=== PATIENT | male | born 1990 | race Hispanic/Latino ===

== ENCOUNTER 2017-09-08 23:38 | Emergency (ER) | payer BC ==
--- NOTE | 2017-09-09 00:37 | ED PDOC ---
HPI: Abdomen Time Seen by Provider: 09/09/17 00:06 Chief Complaint (Nursing): Abdominal Pain Chief Complaint (Provider): Abdominal Pain History Per: Patient History/Exam Limitations: no limitations Onset/Duration Of Symptoms: Days (1 week) Location Of Pain/Discomfort: RUQ Quality Of Discomfort: "Pain" Associated Symptoms: Nausea. denies: Vomiting, Other (abnormal bowel movement) Additional Complaint(s): 26 year old male with a history of ADHD presents to the ED complaining of abdominal pain. Reports he started taking strattera medication for ADHD 4 weeks ago and about one week ago, he developed right-sided abdominal pain. States the pain was initially on the right lower quadrant but radiated to right upper quadrant with associated symptoms of nausea and intermittent groin pain. However , he currently does not have groin pain. Patient is also concerned about liver involvement because of the medication he has been taking. Denies vomiting or abnormal bowel movement. PMD: No Family Provider Past Medical History Reviewed: Historical Data, Nursing Documentation, Vital Signs Vital Signs: Last Vital Signs Temp 98.5 F 09/08/17 23:46 Pulse 94 H 09/08/17 23:46 Resp 16 09/08/17 23:46 BP 136/80 09/08/17 23:46 Pulse Ox 98 09/09/17 00:43 - Medical History PMH: Asthma Denies: Chronic Kidney Disease - Surgical History Surgical History: Tonsillectomy - Family History Family History: States: Unknown Family Hx - Immunization History Hx Tetanus Toxoid Vaccination: Yes - Home Medications Home Medications: Ambulatory Orders Medication Instructions Recorded Ibuprofen [Motrin Tab] 800 mg PO Q6H PRN #20 tab 02/12/15 Epinephrine [Epipen Auto-Injector] 0.3 mg IM ONCE #1 packet 06/11/15 Famotidine [Pepcid] 20 mg PO BID #10 tab 06/11/15 predniSONE [predniSONE Tab] 60 mg PO DAILY #12 tab 06/11/15 Ibuprofen 600 mg PO Q6 PRN #20 tablet 12/07/15 - Allergies Allergies/Adverse Reactions: Allergies Allergy/AdvReac Type Severity Reaction Status Date / Time amoxicillin Allergy RASH Verified 09/08/17 23:45 cefprozil Allergy RASH Verified 09/08/17 23:45 clindamycin Allergy SHORTNESS Verified 09/08/17 23:45 OF BREATH peanut Allergy ANAPHYLAXIS Verified 09/08/17 23:45 Review of Systems ROS Statement: Except As Marked, All Systems Reviewed And Found Negative Gastrointestinal: Positive for: Nausea, Abdominal Pain. Negative for: Vomiting Genitourinary Male: Negative for: Other (abnormal bowel movement) Physical Exam - Reviewed Nursing Documentation Reviewed: Yes Vital Signs Reviewed: Yes - Physical Exam Appears: Positive for: Well, Non-toxic, No Acute Distress Head Exam: Positive for: ATRAUMATIC, NORMAL INSPECTION, NORMOCEPHALIC Skin: Positive for: Normal Color, Warm, Dry Eye Exam: Positive for: EOMI, Normal appearance, PERRL ENT: Positive for: Normal ENT Inspection Neck: Positive for: Normal, Painless ROM, Supple. Negative for: Decreased ROM Cardiovascular/Chest: Positive for: Regular Rate, Rhythm. Negative for: Murmur Respiratory: Positive for: Normal Breath Sounds. Negative for: Decreased Breath Sounds, Accessory Muscle Use, Wheezing, Respiratory Distress Gastrointestinal/Abdominal: Positive for: Normal Exam (percussion of liver demonstrates no hepatomegaly). Negative for: Bowel Sounds, Soft, Tenderness Back: Positive for: Normal Inspection. Negative for: L CVA Tenderness, R CVA Tenderness Extremity: Positive for: Normal ROM. Negative for: Tenderness, Pedal Edema, Deformity Neurologic/Psych: Positive for: Alert, Oriented (x3). Negative for: Motor/ Sensory Deficits - Laboratory Results Result Diagrams: 09/09/17 00:24 09/09/17 00:45 - ECG O2 Sat by Pulse Oximetry: 98 (RA) Pulse Ox Interpretation: Normal Medical Decision Making Medical Decision Making: Time: 0014 A/P: 26 year old male with history of ADHD presents with worsening right upper quadrant abdominal pain. Patient with normal vitals, well-appearing benign examine. Symptoms may be secondary to medication, possibly gas and very unlikely to gallbladder or appendix. Will do blood work to evaluate LFTs and reevaluate afterwards. Initial Plan: --BMP --Liver Profile --CBC --Urinalysis --Reevaluation 130AM Explained results to patient, states he's going to followup with his PMD tomorrow. Patient feeling well, in agreement to "watch and wait" approach to imaging at this time. Return precautions discussed. Scribe Attestation: Documented by Julita Hamilton, acting as a scribe for Ryan Curiel MD Provider Scribe Attestation: All medical record entries made by the Scribe were at my direction and personally dictated by me. I have reviewed the chart and agree that the record accurately reflects my personal performance of the history, physical exam, medical decision making, and the department course for this patient. I have also personally directed, reviewed, and agree with the discharge instructions and disposition. Disposition - Clinical Impression Clinical Impression: Abdominal pain - Disposition Referrals: Donna Harrington [Outside] Disposition: Routine/Home Disposition Time: 01:30 Condition: GOOD Instructions: Acute Abdomen (Belly Pain), Adult (DC) Forms: [employer] (Montenegrin)
[2017-09-09 00:41] LABS: HEMOGLOBIN 16.8 g/dL (12.0-18.0); MEAN CELL VOLUME 85.7 fl (80.0-94.0); MEAN CORPUSCULAR HEMOGLOBIN 29.3 pg (27.0-31.0); MEAN CORPUSCULAR HGB CONC 34.2 g/dL (33.0-37.0); RBC 5.72 Mil/uL (4.40-5.90); WHITE BLOOD COUNT 8.8 K/uL (4.8-10.8)
[2017-09-09 00:55] LABS: URINE BILIRUBIN NEGATIVE (NEGATIVE); URINE BLOOD NEGATIVE (NEGATIVE); URINE CLARITY CLEAR (Clear); URINE COLOR YELLOW (YELLOW); URINE GLUCOSE (UA) NEG (Normal); URINE LEUKOCYTE ESTERASE NEG Leu/uL (Negative); URINE PROTEIN NEGATIVE (NEGATIVE); URINE UROBILINOGEN 0.2-1.0 mg/dL (0.2-1.0)
[2017-09-09 00:55] LABS: ALB/GLOB RATIO 1.2 (1.0-2.1); ALBUMIN 4.9 g/dL (3.5-5.0); ALT/SGPT 35 U/L (21-72); AST/SGOT 31 U/L (17-59); BILIRUBIN,DIRECT 0.3 mg/ml (0.0-0.4); BLOOD UREA NITROGEN 16 mg/dl (9-20); CALCIUM 9.7 mg/dL (8.4-10.2); GFR AFRICAN-AMERICAN > 60; GFR NON-AFRICAN AMERICAN > 60
[2017-09-09 02:01] VITALS: BP 129/79; PULSE 88; RESP 17; TEMP 98.3; O2SAT 100
== END 2017-09-09 01:57 | disposition home or self-care (01) ==
LOC: H.ER 23:38
DX: R10.11 Right upper quadrant pain (principal)